=== PATIENT | female | born 1955 | race Caucasian/White ===

== ENCOUNTER → 2017-01-11 | Outpatient (CLI) | payer OTHER ==
--- NOTE | ~2017-01-11 | NDGEN ---
PATIENT'S NAME: ROCÍO GE [facility] AGE: 61 Y [address] ROOM: [place] [address] LOCATION: [facility] ADMIT DATE: 01/11/2017 [facility] DISCHARGE DATE: FAMILY PHYSICIAN: CONG MAO PA-C ATTENDING PHYSICIAN: Fern Cabello PROCEDURE: NERVE CONDUCTION STUDY. DATE OF PROCEDURE: 01/11/2017 TEST: TECH: CLINICAL DIAGNOSIS: INDICATION: This is a patient who has bilateral hand pain, particularly in the bases in the area of the thumb, but not particular tingling into the fingers consistent with carpal tunnel syndrome. Nerve conduction studies were performed in the median and ulnar motor and sensory nerves. FINDINGS: The motor nerve conduction studies revealed completely normal motor onset latencies, amplitudes, and durations along with normal nerve conduction velocities seen in the median and ulnar motor nerves. On the sensory nerve studies, there were also normal parameters shown by normal peak onset latencies, amplitudes, and nerve conduction velocities. F-wave studies were within normal limits in the median and ulnar motor nerves as well. Needle EMG was unnecessary based upon the patient having completely normal nerve conduction velocities and based upon her clinical presentation here. IMPRESSION: The nerve conduction studies were completely within normal limits and did not reveal evidence for focal mononeuropathy of the upper extremities or polyneuropathy. The patient likely has a syndrome associated with some overuse of her hands with possibly some strain injury to the local tendons of the hands. Clinical correlation is advised. MD EMILIA TREJO/marciano /[id number] dtt: 01/26/17 1351 , PREET VIEYRA dtd: 01/11/17 1741
== END | disposition disaster alternative care site (69) ==
LOC: GNEU 14:07
DX: G56.00 Carpal tunnel syndrome, unspecified upper limb (principal)